=== PATIENT | male | born 1965 | race Caucasian/White ===

== ENCOUNTER 2018-11-02 15:39 | Emergency (ER) | payer OTHER ==
[~2018-11-02] VITALS: Ht 188 cm; Wt 113.4 kg
[~2018-11-02 15:39] MED LIST: CEPH500 PO; CYCL10 PO; GABA100 PO; HYDACE5 PO; IBUP800 PO; META800 PO; METF500 PO; METO50 PO; NAPR500 PO; OMEP20ER PO; OMEP40CA12 PO; OXYC10TA19 PO; PROM25 PO; RXHYDACE PO; Roxicodone15 MG PO; Tizanidine HCl2 MG PO; ZOLP10 PO
[2018-11-02] MEDS ORDERED: TIZANIDINE HCL4 MG PO ×2 (16:36→16:53)
[2018-11-02] MEDS ORDERED: METO25 PO (16:37)
[2018-11-02] MEDS ORDERED: PREG200 PO ×2 (16:41→16:53)
[2018-11-02] MEDS ORDERED: TRAZ150T57 PO ×2 (16:41→16:53)
[2018-11-02] MEDS ORDERED: DULO60 PO (16:41)
== END 2018-11-02 16:56 | disposition home or self-care (01) ==
LOC: ER 15:39
DX: Z76.0 Encounter for issue of repeat prescription (principal); Z79.899 Other long term (current) drug therapy; Z79.84 Long term (current) use of oral hypoglycemic drugs
CPT/HCPCS: 99281

== ENCOUNTER 2018-12-06 13:49 | Emergency (ER) | payer OTHER ==
[~2018-12-06] VITALS: Ht 188 cm; Wt 111.1 kg
[~2018-12-06 13:49] MED LIST changes: +DULO60 PO; +METO25 PO; +PREG200 PO; +TIZANIDINE HCL4 MG PO; +TRAZ150T57 PO
[2018-12-06] MEDS ORDERED: PREG200 PO (14:07)
[2018-12-06] MEDS ORDERED: Zanaflex4 M1 PO (14:07)
[2018-12-06] MEDS ORDERED: Lopressor 25 mg25 MG PO (14:07)
== END 2018-12-06 14:20 | disposition home or self-care (01) ==
LOC: ER 13:49
DX: Z76.0 Encounter for issue of repeat prescription (principal); I10 Essential (primary) hypertension; Z79.899 Other long term (current) drug therapy
CPT/HCPCS: 99281

== ENCOUNTER 2021-02-20 13:45 | Emergency (ER) | payer OTHER ==
[~2021-02-20] VITALS: Ht 188 cm; Wt 113.4 kg
[~2021-02-20 13:45] MED LIST changes: +Lopressor 25 mg25 MG PO; +Zanaflex4 M1 PO
[2021-02-20] MEDS ORDERED: PREG200 PO (13:52)
[2021-02-20] MEDS ORDERED: Lopressor 25 mg25 MG PO (13:52)
== END 2021-02-20 13:57 | disposition home or self-care (01) ==
LOC: ER 13:45
DX: I10 Essential (primary) hypertension (principal); Z79.899 Other long term (current) drug therapy
CPT/HCPCS: 99281

== ENCOUNTER 2021-03-29 10:49 | Emergency (ER) | payer OTHER ==
[~2021-03-29] VITALS: Ht 188 cm; Wt 111.1 kg
[2021-03-29] MEDS ORDERED: PREG200 PO (11:03)
== END 2021-03-29 11:07 | disposition home or self-care (01) ==
LOC: ER 10:49
DX: Z76.0 Encounter for issue of repeat prescription (principal); I10 Essential (primary) hypertension; Z79.899 Other long term (current) drug therapy
CPT/HCPCS: 99281

== ENCOUNTER 2022-12-27 08:45 | Day surgery (SDC) | payer OTHER ==
[~2022-12-27] VITALS: Ht 188 cm; Wt 118.6 kg
[2022-12-27] MEDS ORDERED: ZOLP5 PO (09:21)
[2022-12-27] MEDS ORDERED: OMEP20ER PO (09:31)
--- NOTE | 2022-12-27 10:52 | NUR ---
12/27/22 Ermias2 Arina Landon 2 SPRAYS AFRIN EACH NOSTRIL PER DR BUTTS'S ORDERS IN PRE-OP TRANSPORTATION TECHNICIAN TO OR GIVEN
--- NOTE | 2022-12-27 12:08 | NUR ---
12/27/22 1208 Melissa Painter UNDER KNEES
--- NOTE | 2022-12-27 12:43 | NUR ---
12/27/22 1243 Saida Peterson REMOVED FACE TENT O2 SAT STAYS AT 98%
--- NOTE | 2022-12-27 13:48 | NUR ---
12/27/22 Saida Gordon GONE OVER DISCHARGE INSTRUCTIONS WITH PT. PT NOT READY TO GET DRESS, WAITING ON RIDE HIS MOTHER.
== END 2022-12-27 14:00 | disposition home or self-care (01) ==
LOC: ORSCSDS 08:45
PROVIDERS: Otolaryngology
PROC: 09TL0ZZ Resection of Nasal Turbinate, Open Approach (ICD-10-PCS; principal; 2022-12-27 10:00)
PROC: 09BM0ZZ Excision of Nasal Septum, Open Approach (ICD-10-PCS; principal; 2022-12-27 10:00)
DX: J34.2 Deviated nasal septum (principal); J34.3 Hypertrophy of nasal turbinates; R09.81 Nasal congestion; E66.9 Obesity, unspecified; Z68.33 Body mass index [BMI] 33.0-33.9, adult; Z79.899 Other long term (current) drug therapy
CPT/HCPCS: A9270; J0690; J1100; J2001; J2250; J2405; J2704; J3010; J7120

== ENCOUNTER → 2023-05-11 | Outpatient (CLI) | payer OTHER ==
[~2023-05-11] MED LIST changes: +ZOLP5 PO
[2023-05-11 10:55] LABS: BASOPHILS ABSOLUTE AUTO 0.09 K/mm3 (0.00-0.23); BASOPHILS PERCENT AUTO 1 % (0-2); EOSINOPHILS ABSOLUTE AUTO 0.26 K/mm3 (0.00-0.68); EOSINOPHILS PERCENT AUTO 4 % (0-6); Hematocrit 41.9 % (37.0-53.0); Hemoglobin 14.2 g/dL (13.5-17.5); IMMATURE GRAN ABSOLUTE AUTO 0.03 K/mm3 (0.00-0.10); IMMATURE GRAN PERCENT AUTO 0 % (0-1); LYMPHOCYTES ABSOLUTE AUTO 1.68 K/mm3 (0.84-5.20); LYMPHOCYTES PERCENT AUTO 23 % (21-46); MONOCYTES ABSOLUTE AUTO 0.59 K/mm3 (0.16-1.47); MONOCYTES PERCENT AUTO 8 % (4-13); Mean Corpuscular HGB 29.8 pg (26.0-34.0); Mean Corpuscular HGB Conc 33.9 g/dL (31.5-36.5); Mean Corpuscular Volume 88 fL (80-100); Mean Platelet Volume 11.2 fL (9.1-12.4); NEUTROPHILS ABSOLUTE AUTO 4.77 K/mm3 (1.96-9.15); NEUTROPHILS PERCENT AUTO 64 % (41-73); Platelet Count 224 K/mm3 (150-400); RDW Coefficient Variation 13.8 % (11.7-14.2); Red Blood Cell Count 4.76 M/mm3 (4.30-5.90); White Blood Cell Count 7.42 K/mm3 (4.00-11.30)
[2023-05-11 11:05] LABS: Albumin, Blood 3.3 g/dL (3.4-5.0); Albumin/Globulin Ratio 0.9 (0.8-1.8); Bilirubin, Total 0.4 mg/dL (0.1-1.0); Bun/Creatinine Ratio 18.3 (12.0-20.0); Calcium, Blood 8.6 mg/dL (8.5-10.1); Creatinine, Blood 1.09 mg/dL (0.60-1.20); Globulin, Blood 3.7 g/dL (2.2-4.0); Potassium, Blood 4.2 mmol/L (3.5-5.5)
== END ==
LOC: LAB SHORT 10:51 → LAB 10:51
PROVIDERS: Physician Assistant Surgical
DX: R10.31 Right lower quadrant pain (principal)
CPT/HCPCS: 80053; 85025

== ENCOUNTER → 2023-09-12 | Outpatient (CLI) | payer OTHER | LOC: LAB 12:00 → LAB SHORT 12:00 | DX: N41.0 Acute prostatitis (principal) | CPT/HCPCS: 87086 ==

== ENCOUNTER 2024-04-22 06:59 | Day surgery (SDC) | payer OTHER ==
[2024-04-22] VITALS (7 sets, daily range): BP systolic 124–150; BP diastolic 83–94
[~2024-04-22] VITALS: Ht 188 cm; Wt 114.4 kg
[~2024-04-22 06:59] MED LIST changes: +ALOGLIPTIN25 M1 PO; +AZELASTINE137 MCG/01; +BUPRENORPHN-NA1 EACH PO; +FLUC200 PO; +Flonase 0.05% N16 GM; +NEOPOLHCSU LEFTEAR; +ONDA4 PO; +PSEU120ER PO; +SILD25T; +STEGLATRO5 MG PO; +TRAZ150T57
[2024-04-22] MEDS ORDERED: Lactated Ringer's 1,000 ML IV SCH (07:45)
[2024-04-22] MEDS ORDERED: Bupivacaine 0.5% HCl 5 MG/ML 30MLVIAL ONE (09:14)
[2024-04-22] MEDS ORDERED: SuccINYLCHOLINE Chloride 100 MG/5 ML 5MLSYR ONE (09:33)
[2024-04-22] MEDS ORDERED: FentaNYL Citrate 50 MCG/ML 2 ML Injection ONE (09:33)
[2024-04-22] MEDS ORDERED: propofoL 20 ML IV ONE (09:33)
[2024-04-22] MEDS ORDERED: Rocuronium Bromide 10 MG/ML 5ML Injection IV ONE (09:33)
[2024-04-22] MEDS ORDERED: Dexamethasone Sod Phos 10 MG/ML 1ML VIAL ONE (09:45)
[2024-04-22] MEDS ORDERED: EpiNEPhrine 1 MG/1 ML 1ML Vial ONE (09:54)
--- NOTE | 2024-04-22 10:03 | NUR ---
04/22/24 1003 Deann Herron LIDOCAINE W/EPI 1:200,[address] BY DR HOLGUIN AND PLACED ON THE FIELD FOR USE BY DR HU.
[2024-04-22] MEDS ORDERED: Ondansetron HCl 2 MG / ML 2ML Vial ONE (10:10)
[2024-04-22] MEDS ORDERED: OxyCODONE HCL 5 MG TAB PO PRN (11:05)
--- NOTE | 2024-04-22 11:15 | NUR ---
PT PAINFUL 05/08 PT REPOSTIONED ICE PACK PLACED ON RECTAL AREA, PT GIVEN 1 OXYCODONE PO FOR PAIN, PT UP TO BR TO VOID, AMBULATES WITH OUT DIFFICULTY
--- NOTE | 2024-04-22 11:30 | NUR ---
Patient up to Ambulate independently. Gait steady. Discharge instructions reviewed with patient. Patient verbalizes understanding. Copy given to patient to take home. Patient States Post-Procedure ride home has been arranged. Discharged via wheelchair to private car for ride home. PT INSTRUCTED ON ICE USE FOR PAIN,
== END 2024-04-22 11:30 | disposition home or self-care (01) ==
LOC: ORSCMMR 06:59 → ORD 08:30 → ORSCMMR 08:30
PROVIDERS: Surgery
PROC: 06BY0ZC Excision of Hemorrhoidal Plexus, Open Approach (ICD-10-PCS; principal; 2024-04-22 08:30)
DX: K64.4 Residual hemorrhoidal skin tags (principal); K64.8 Other hemorrhoids; I10 Essential (primary) hypertension; K21.9 Gastro-esophageal reflux disease without esophagitis; G62.9 Polyneuropathy, unspecified; Z79.899 Other long term (current) drug therapy
CPT/HCPCS: 88304; A9270; J0171; J0330; J1100; J2405; J2704; J3010; J7120

== ENCOUNTER 2024-12-02 18:56 | Emergency (ER) | payer OTHER ==
[~2024-12-02] VITALS: Ht 188 cm; Wt 113.4 kg
[2024-12-02 19:31] LABS: BASOPHILS ABSOLUTE AUTO 0.07 K/mm3 (0.00-0.23); BASOPHILS PERCENT AUTO 0 % (0-2); EOSINOPHILS ABSOLUTE AUTO 0.01 K/mm3 (0.00-0.68); EOSINOPHILS PERCENT AUTO 0 % (0-6); Hematocrit 51.1 % (37.0-53.0); Hemoglobin 17.9 g/dL (13.5-17.5); IMMATURE GRAN ABSOLUTE AUTO 0.09 K/mm3 (0.00-0.10); IMMATURE GRAN PERCENT AUTO 1 % (0-1); LYMPHOCYTES ABSOLUTE AUTO 1.61 K/mm3 (0.84-5.20); LYMPHOCYTES PERCENT AUTO 10 % (21-46); MONOCYTES ABSOLUTE AUTO 1.11 K/mm3 (0.16-1.47); MONOCYTES PERCENT AUTO 7 % (4-13); Mean Corpuscular Volume 86 fL (80-100); Mean Platelet Volume 10.7 fL (9.1-12.4); NEUTROPHILS ABSOLUTE AUTO 13.75 K/mm3 (1.96-9.15); NEUTROPHILS PERCENT AUTO 83 % (41-73); Platelet Count 285 K/mm3 (150-400); RDW Coefficient Variation 13.1 % (11.7-14.2); RDW Standard Deviation 40.2 fL (35.1-46.3); Red Blood Cell Count 5.96 M/mm3 (4.30-5.90); White Blood Cell Count 16.64 K/mm3 (4.00-11.30)
[2024-12-02 19:42] LABS: Albumin, Blood 4.4 g/dL (3.4-5.0); Bilirubin, Total 1.2 mg/dL (0.1-1.0); Bun/Creatinine Ratio 13.7 (12.0-20.0); Calcium, Blood 10.2 mg/dL (8.5-10.1); Creatinine, Blood 1.02 mg/dL (0.60-1.20); Globulin, Blood 4.3 g/dL (2.2-4.0); Potassium, Blood 3.5 mmol/L (3.5-5.5); Total Protein, Blood 8.7 g/dL (6.4-8.2)
[2024-12-02 19:49] LABS: CORONAVIRUS COVID-19 AG Negative (NEGATIVE); INFLUENZA A AG Negative (NEGATIVE); INFLUENZA B AG Negative (NEGATIVE)
[2024-12-02] MEDS ORDERED: NS 1,000 ML IV SCH ×2 (20:05→21:45)
[2024-12-02] MEDS ORDERED: DiphenhydrAMINE HCl 50 MG/ML 1ML Vial IV ONE (20:05)
[2024-12-02] MEDS ORDERED: Prochlorperazine Edisylate 10 mg Vial IV ONE (20:05)
[2024-12-02] MEDS ORDERED: Haloperidol Lactate Inj. 5 MG/ML Injection IV ONE ×2 (20:45→23:10)
[2024-12-02] MEDS ORDERED: ONDA4ODT MM (21:46)
[2024-12-02 23:00] VITALS: BP 150/81
== END 2024-12-02 23:24 | disposition home or self-care (01) ==
LOC: ER 18:56
PROVIDERS: Emergency Medicine
DX: R11.15 Cyclical vomiting syndrome unrelated to migraine (principal); E86.0 Dehydration; F12.90 Cannabis use, unspecified, uncomplicated; I10 Essential (primary) hypertension; Z79.899 Other long term (current) drug therapy; Z59.89 Other problems related to housing and economic circumstances
CPT/HCPCS: 80053; 85025; 87428-QW; 93005; 93010; 96374; 96375; 96376; 99285-25; J0780; J1200; J1630; J7030